=== PATIENT | male | born 1990 | race Caucasian/White ===

== ENCOUNTER 2022-10-29 12:11 | Day surgery (SDC) | payer OTHER ==
[~2022-10-29] VITALS: Ht 177.8 cm; Wt 107.1 kg
[~2022-10-29 12:11] MED LIST: NS 1,000 ML IV ONE; OMEP-173 PO
[2022-10-29] MEDS ORDERED: fentaNYL 100 MCG/2 ML INJECTION As Ordered ONE (13:06)
[2022-10-29] MEDS ORDERED: propofoL 200 MG/20 ML VIAL As Ordered ONE ×2 (13:06→14:09)
[2022-10-29 13:53] VITALS: TEMP 96.7
[2022-10-29] MEDS ORDERED: LIDOCAINE 2% 100MG/5ML SDV (FOR ANES.) As Ordered ONE (14:09)
[2022-10-29 14:42] VITALS: BP 123/86; O2SAT 99
== END 2022-10-29 15:04 | disposition home or self-care (01) ==
LOC: M OPP 12:11
PROVIDERS: ATTEND Internal Medicine Gastroenterology
DX: K21.00 Gastro-esophageal reflux disease with esophagitis, without bleeding (principal); K29.70 Gastritis, unspecified, without bleeding; K44.9 Diaphragmatic hernia without obstruction or gangrene; Z79.899 Other long term (current) drug therapy
CPT/HCPCS: 43239; 88305; J3010